=== PATIENT | male | born 1990 | race Caucasian/White ===

== ENCOUNTER 2021-04-08 17:47 | Emergency (ER) | payer OTHER ==
[~2021-04-08] VITALS: Ht 162.6 cm; Wt 77.1 kg
[2021-04-08 18:38] VITALS: BP 124/72
[2021-04-08] MEDS ORDERED: CLINDAMYCIN PHOSPHATE IV 600 MG/4 ML VIAL ONE (19:17)
[2021-04-08] MEDS ORDERED: MORPHINE SULFATE INJ 4 MG/ML DISP.SYRIN ONE (19:18)
[2021-04-08] MEDS ORDERED: ONDANSETRON 4 MG TAB.RAPDIS ONE (19:18)
[2021-04-08] MEDS ORDERED: HYDR-3972 PO (19:19)
[2021-04-08] MEDS ORDERED: CLIN300C12 PO (19:19)
[2021-04-08] MEDS ORDERED: MORPHINE SULFATE INJ 4 MG/ML DISP.SYRIN IM ONE (19:30)
[2021-04-08] MEDS ORDERED: CLINDAMYCIN 900 MG/6 ML VIAL IM ONE (19:30)
[2021-04-08] MEDS ORDERED: ONDANSETRON 4 MG TAB.RAPDIS SL ONE (19:30)
--- NOTE | 2021-04-08 19:56 | NUR ---
PT OK TO DISCHARGE PER LUCINA LÓPEZ. Patient discharged to home in stable condition. Written and verbal after care instructions given. Patient verbalizes understanding of instruction.Patient is awake and alert to self, day, and place. PT ambulatory with a steady gait
== END 2021-04-08 22:31 | disposition home or self-care (01) ==
LOC: ER 17:50
DX: K04.7 Periapical abscess without sinus (principal); K02.9 Dental caries, unspecified; F98.8 Other specified behavioral and emotional disorders with onset usually occurring in childhood and adolescence; Z60.2 Problems related to living alone
CPT/HCPCS: 96372 ×2; 99284; J2270; Q0162